=== PATIENT | female | born 1940 | race Caucasian/White ===

== ENCOUNTER → 2017-03-18 | Outpatient (CLI) | payer MEDICARE, BC ==
[~2017-03-18] MED LIST: ALUMAG30SU PO; ASCO1ER PO; ASCO250CH PO; ASPI81CH PO; B VITAMINS; CALCAVITD PO; CIPR500 PO; CIPRO500 MG PO; CYAN500 PO; CYCL10 PO; Flagyl500 MG PO; GLUCHON PO; HYDACE5 PO; HYDMOR2 PO; METR500 PO; MULVITA PO; MULVITMIND PO; Norco 5-325 Ta1 EACH PO; PROC5 PO; Vitamin C100 M1 PO; Zofran4 MG PO
== END ==
LOC: PLD 11:08 → LAB SHORT 11:08
DX: D48.5 Neoplasm of uncertain behavior of skin (principal)
CPT/HCPCS: 88305

== ENCOUNTER 2017-12-11 17:39 | Emergency (ER) | payer OTHER, MEDICARE, BC ==
[~2017-12-11] VITALS: Ht 162.6 cm; Wt 82.5 kg
[~2017-12-11 17:39] MED LIST changes: -ASPI81CH PO
[2017-12-11] MEDS ORDERED: ASPI81CH PO (17:53)
== END 2017-12-11 20:07 | disposition home or self-care (01) ==
LOC: ER 17:39
DX: M54.6 Pain in thoracic spine (principal); Z79.899 Other long term (current) drug therapy; Z79.82 Long term (current) use of aspirin; V43.52XA Car driver injured in collision with other type car in traffic accident, initial encounter
CPT/HCPCS: 72070; 99283-25

== ENCOUNTER 2019-09-05 10:58 | Day surgery (SDC) | payer MEDICARE, BC ==
[~2019-09-05] VITALS: Ht 160 cm; Wt 85.9 kg
[~2019-09-05 10:58] MED LIST changes: +ACET500 PO; +ASPI81CH PO; +Cranberry Conc500 MG PO; +VITAMIN D3125 MC3 PO
== END 2019-09-05 14:32 | disposition home or self-care (01) ==
LOC: ORSCSDS 10:58
PROVIDERS: Podiatrist Foot & Ankle Surgery
PROC: 0QBL0ZZ Excision of Right Tarsal, Open Approach (ICD-10-PCS; principal; 2019-09-05 12:30)
DX: M65.271 Calcific tendinitis, right ankle and foot (principal); M24.573 Contracture, unspecified ankle; E78.5 Hyperlipidemia, unspecified; J45.909 Unspecified asthma, uncomplicated; Z79.82 Long term (current) use of aspirin
CPT/HCPCS: C1713; J0171; J0690; J1100; J1885; J2250; J2405; J2704; J2710; J3010; J7120

== ENCOUNTER → 2022-02-28 | Outpatient (CLI) | payer MEDICARE, BC ==
[2022-02-28 15:45] LABS: Source, Urine Clean Catch
[2022-02-28 17:21] LABS: Appearance, Urine Bloody (Clear); Bilirubin, Urine Neg (Neg); Blood, Urine 5+ (Neg); Color, Urine Red (P-Yellow); Glucose Qualitative, Urine Neg (Neg); Ketones, Urine Neg (Neg); Leukocyte Esterase, Urine 2+ (Neg); Nitrite, Urine Neg (Neg); Protein, Urine 3+ (Neg); Urobilinogen, Urine NORM (Normal); pH, Urine 6.5 (5.0-8.0)
[2022-02-28 17:24] LABS: Red Blood Cells, Urine TNTC /hpf (0-2); White Blood Cells, Urine 25-50 /hpf (0-5)
[2022-02-28 17:26] LABS: Bacteria Few /hpf; Squamous Epithelial Cells Few /hpf (Few)
== END ==
LOC: LAB SHORT 15:41 → LAB 15:41
PROVIDERS: Internal Medicine
DX: R31.9 Hematuria, unspecified (principal)
CPT/HCPCS: 81001; 87077; 87086; 87186